=== PATIENT | female | born 1950 | race African-American/Black ===

== ENCOUNTER 2020-10-29 16:40 | Inpatient (IN) | payer MEDICARE, OTHER ==
[~2020-10-29] VITALS: Ht 152.4 cm; Wt 58.9 kg
[2020-10-29 19:12] LABS: COLLECTION METHOD CATHETER
[2020-10-29 19:26] LABS: MUCOUS Present /lpf; PH 5 (5-8); URINE APPEARANCE Hazy; URINE BACTERIA None Seen /hpf; URINE BILIRUBIN Positive (NEGATIVE); URINE BLOOD 1+ (NEGATIVE); URINE COLOR Amber; URINE GLUCOSE Negative (NEGATIVE); URINE KETONE 2+ (NEGATIVE); URINE LEUKOCYTE ESTERASE Negative (NEGATIVE); URINE NITRATE Negative (NEGATIVE); URINE PROTEIN(semi-quant) 2+ (NEGATIVE); URINE UROBILINOGEN >=4.0 mg/dL (NEGATIVE)
[2020-10-29] MEDS ORDERED: LEXAPRO 10MG10 MG PO (21:00)
[2020-10-29] MEDS ORDERED: PROTONIX 40MG T40 MG PO (21:01)
[2020-10-29] MEDS ORDERED: CARTIA XT300 MG PO (21:01)
[2020-10-29] MEDS ORDERED: VITAMIND3 5000 PO (21:02)
[2020-10-29 21:11] LABS: BASO # 0.1 (0.0-0.2); BASO % 0.7 % (0.0-2.0); EOS % 0.1 % (0-4.0); GRAN # 5.5 (1.4-6.5); GRAN % 74.6 % (42.2-75.2); HEMATOCRIT 42.2 % (37.0-47.0); HEMOGLOBIN 13.9 g/dl (12.5-16.0); LYMPH % 13.7 % (20.0-51.0); MEAN CELL VOLUME 83 fl (80.0-100.0); MEAN CORPUSCULAR HEMOGLOBIN 28 pg (27.0-31.0); MEAN CORPUSCULAR HGB CONC 33 g/dl (33.0-37.0); MEAN PLATELET VOLUME 12.3 fl (7.4-10.4); MONO # 0.7 (0.1-0.6); MONO % 9.8 % (1.7-9.3); RED BLOOD COUNT 5.06 M/mm3 (4.10-5.30); REDCELL DISTRIBUTION WIDTH-CV 19.7 % (11.5-14.5)
[2020-10-29 21:15] LABS: ALBUMIN 3.4 gm/dL (3.5-5.0); BILIRUBIN,TOTAL 0.7 mg/dL (0.0-1.0); CALCIUM 9.3 mg/dL (8.4-10.2); CREATININE, serum 0.45 (0.52-1.25); MAGNESIUM 1.9 mg/dL (1.6-2.3); POTASSIUM 3.7 mmol/L (3.4-5.0); TOTAL PROTEIN 6.4 gm/dL (6.4-8.2)
[2020-10-29 21:26] LABS: TROPONIN-I 0.021 ng/mL (0.000-0.035)
[2020-10-29 21:37] LABS: PLATELET COUNT 231 K/mm3 (130-400)
--- NOTE | 2020-10-29 22:51 | NUR ---
Received report from TARAS Granado.
[2020-10-30] VITALS (541 sets, daily range): BP systolic 125–146; BP diastolic 62–100; PULSE 82–112; TEMP 97.5–98.4; O2SAT 84–100
--- NOTE | 2020-10-30 00:07 | NUR ---
Patient arrives to ICU room 5 via ED stretcher. Patient is transferred to ICU bed with two-person total assist. Initial BP is 143/100 and HR is 108; other vitals within normal limits. Patient is A&Ox4, and reports chronic numbness/tingling in bilateral upper and lower extremities. Describes pain as "burning," rated 10/10. Bed in lowest position; call light within reach. All alarms on. No further needs noted at this time.
[2020-10-30] MEDS ORDERED: NEURONTIN300 MG/CAP PO (00:11)
[2020-10-30] MEDS ORDERED: ULTRAM 50MG TAB50 MG PO (00:12)
--- NOTE | 2020-10-30 07:20 | NUR ---
RECEIVED REPORT FROM TARAS KYLE. PT RESTING EASILY AT THIS TIME. VSS. CALL LIGHT WITHIN REACH. PUREWICK IN PLACE.
--- NOTE | 2020-10-30 09:55 | NUR ---
Initial visit; Patient thanked Creative Assistant for prayer and God's blessings. Creative Assistant will continue to look in on Cherise while she is a patient.
--- NOTE | 2020-10-30 10:00 | NUR ---
SPOKE TO ANAID ABOUT PT HAVING NO IV ACCESS, PT'S DIET ORDER, AND RECORDS FROM [facility]. NEW ORDERS RECEIVED. PHYSICIAN REVIEWED NADIYA'S CHART.
--- NOTE | 2020-10-30 10:47 | NUR ---
Utility Tender Carding contacted the patient's daughter, Denise to complete intake. The patient lives with Denise in [place]. The patient has a walker, a wheelchair, and bedside commode. [facility] began with the patient last week. Denise reports they filled out an online Medicaid application about 2.5 weeks ago. The patient's PCP is Dr. Overton and patient receives medications from the [facility] in [place]. The patient does not have advanced directives. The plan is to go SNF at discharge. She was agreeable to sending several referrals. Referrals faxed to [facility], [facility], [facility], [facility] in [place], and [facility] in [place]. SW met with the patient and she was agreeable to sending the above referrals as well. YESICA collaborated the above information with the team.
--- NOTE | 2020-10-30 12:00 | NUR ---
DR HERRERA AT BEDSIDE FOR ASSESSMENT. NEW ORDERS RECEIVED.
--- NOTE | 2020-10-30 13:28 | NUR ---
Turntable Operator collaborated with La Nena Hickman, financial counselor for the patient to sign releases for the Medicaid application process.
[2020-10-30 16:15] LABS: HIV 1/2 Antibodies Non-Reactive; HIV-1p24 Antigen Non-Reactive
--- NOTE | 2020-10-30 16:30 | NUR ---
NOTIFIED DR HERRERA OF [facility] IS NOT ABLE TO BE ORDERED THROUGH OUR LAB.
--- NOTE | 2020-10-30 16:56 | NUR ---
REPORT GIVEN TO TARAS SESAY ON MEDICAL. PT AWARE OF TRANSFER TO 359. ALL PERSONAL BELONGINGS SENT WITH PT. PT TRANSPORTED VIA BED.
--- NOTE | 2020-10-30 17:24 | NUR ---
Patient to room via bed from ICU. Transferred from ICU bed to room bed with assist of three, patient unable to help. Having some pain in her extremities at this time, numbness and tingling in extremities. Alert and oriented x4. Purewick in place with dark yellow urine in cannister. Patient noted to have small abrasion area under left side of abd fold. Oriented to room. Water provided.
[2020-10-30 17:49] LABS: FOLATE (FOLIC ACID) 3.1 ng/mL (7.0-31.4)
--- NOTE | 2020-10-30 20:45 | NUR ---
Initial shift assessment done- very pleasant , alert/oriented, very weak,,states she cannot hold anything in her hands- hand diplomatic officer very weak-- also can slightly move legs but no strength- has purewick--draining magdi urine-- denies pain, denies SOB, has been resting well
[2020-10-30 22:14] LABS: LYME DISEASE ANTIBODIES Negative (Negative)
[2020-10-31] VITALS (9 sets, daily range): BP systolic 107–138; BP diastolic 46–69; PULSE 90–105; TEMP 98–98.7
--- NOTE | 2020-10-31 05:55 | NUR ---
Did sleep some last night-no requests, denies pain, VSS
--- NOTE | 2020-10-31 07:00 | NUR ---
Report received from TARAS Elliott. PT in bed resting, denies needs,will continue justyn onitor.
[2020-10-31 07:32] LABS: HEMATOCRIT 37.4 % (37.0-47.0); MEAN CELL VOLUME 85 fl (80.0-100.0); MEAN CORPUSCULAR HEMOGLOBIN 27 pg (27.0-31.0); MEAN CORPUSCULAR HGB CONC 32 g/dl (33.0-37.0); MEAN PLATELET VOLUME 12.4 fl (7.4-10.4); PLATELET COUNT 233 K/mm3 (130-400); RED BLOOD COUNT 4.39 M/mm3 (4.10-5.30); REDCELL DISTRIBUTION WIDTH-CV 19.9 % (11.5-14.5)
[2020-10-31 07:34] LABS: HEMOGLOBIN 11.9 g/dl (12.5-16.0)
[2020-10-31 07:45] LABS: BILIRUBIN,TOTAL 0.6 mg/dL (0.0-1.0); CALCIUM 8.9 mg/dL (8.4-10.2); CREATININE, serum 0.46 (0.52-1.25); POTASSIUM 3.4 mmol/L (3.4-5.0); TOTAL PROTEIN 5.7 gm/dL (6.4-8.2)
[2020-10-31 07:53] LABS: TROPONIN-I 0.021 ng/mL (0.000-0.035)
--- NOTE | 2020-10-31 09:42 | NUR ---
Follow-up visit; Patient states she is not making progress toward feeling better but thanked Digital Sales Executive for visiting her again and offering encouragement and prayer.
--- NOTE | 2020-10-31 10:00 | NUR ---
Assessment charted. PT down for MRI nad LP. Denies pain, has numbness and tingling in hands and legs but able to move all extremities but has profound weakness. PICC to KRISTIE, flushes well and good blood return. Purewick in place to drain urine. Denies needs will continue justyn onitor.
--- NOTE | 2020-10-31 12:54 | NUR ---
Nasrin from [facility] has declined the patient for post acute rehab.
--- NOTE | 2020-10-31 14:18 | NUR ---
Crow, at [facility], reports that she is a tentative yes for them. He requests updates.
[2020-10-31 15:21] LABS: CSF APPEARANCE CLEAR
[2020-10-31 15:22] LABS: CSF COLOR OTHER; CSF MONONUCLEAR 50 % (70-100); CSF POLYMORPHONUCLEAR 50 % (0-6); CSF RBC 1000 /mm3 (0-0); GLUCOSE,CSF 56 mg/dL (40-70); TOTAL PROTEIN,CSF 219 mg/dL (15-45)
--- NOTE | 2020-10-31 18:50 | NUR ---
Started first infusion of IVIG at this time. Gave printouts found on CIDP and IVIG for pt education per request. Pt doing well, sleepy from premedicated benadryl but othrerwise denies any issues at thsi time. Pt had good afternoon, able to have some relief from getting probable diagnosis from Dr. Nixon. Will give bedside shift report to nightshift nurse whow ill resume care.
[2020-11-01 03:03] VITALS: BP 133/63; PULSE 94; TEMP 98
[2020-11-01 07:53] LABS: HEMOGLOBIN 11.6 g/dl (12.5-16.0); MEAN CELL VOLUME 84 fl (80.0-100.0); MEAN CORPUSCULAR HEMOGLOBIN 27 pg (27.0-31.0); MEAN CORPUSCULAR HGB CONC 33 g/dl (33.0-37.0); MEAN PLATELET VOLUME 11.8 fl (7.4-10.4); PLATELET COUNT 191 K/mm3 (130-400); RED BLOOD COUNT 4.23 M/mm3 (4.10-5.30); REDCELL DISTRIBUTION WIDTH-CV 19.7 % (11.5-14.5)
[2020-11-01 07:55] LABS: HEMATOCRIT 35.5 % (37.0-47.0)
[2020-11-01 08:04] LABS: ALBUMIN 3.1 gm/dL (3.5-5.0); BILIRUBIN,TOTAL 0.5 mg/dL (0.0-1.0); CALCIUM 9.1 mg/dL (8.4-10.2); CREATININE, serum 0.42 (0.52-1.25); POTASSIUM 3.9 mmol/L (3.4-5.0); TOTAL PROTEIN 6.5 gm/dL (6.4-8.2)
[2020-11-01 08:57] VITALS: BP 125/62; PULSE 88; TEMP 98.2
[2020-11-01 10:37] LABS: ANGIOTENSIN CONVERTING ENZYME 23 U/L (16 - 85)
[2020-11-01 12:20] VITALS: BP 121/58; PULSE 93; TEMP 97.6
--- NOTE | 2020-11-01 12:56 | NUR ---
SW attended clinical rounds. The patient will require four more days of IVIG here. SW notifiend and faxed updates to ARNOLDO, Kerwin Martell, and Sree Mims.
--- NOTE | 2020-11-01 14:03 | NUR ---
Late entry from 10/31. The patient was interested in completing a DPOA-HC. YESICA Harris, provided the form. The patient designated her daughter, Mary Nevarez, and her sister, Melly Connolly, as the alternate. YESICA and Kimberly ROBERT, witnessed the patient's signature. The patient was provided with the original and some copies. Ila, IPR Director, reports that she is interested in the patient.
[2020-11-01 15:27] VITALS: BP 114/44; PULSE 111; TEMP 98.7
--- NOTE | 2020-11-01 18:15 | NUR ---
Pt assessment completed and charted, this afternoon, pt sleepy this morning, refused morning medications this morning, took them this afternoon with lunch. pt took pills 1 at time w/ close supervision. Speech is clear, swallowing watched closely. Pt on room air, breathing is even and unlabored, LS cta. HRRR. Pt has KRISTIE PICC in place, flushes well w/ good blood return. Pt A&O. Pt repositioned, purewick changed. Pt denies any other needs. Pt hand grasp weak. Pt has had no complaints today.
[2020-11-01 18:42] LABS: CADMIUM BLOOD 0.8 ng/mL (<5.0); LEAD,SERUM** 4.5 mcg/dL (<5.0); MERCURY,SERUM <1 ng/mL (<10)
[2020-11-01 20:00] VITALS: BP 128/65; PULSE 95; TEMP 97.6
[2020-11-01 23:03] VITALS: BP 118/51; PULSE 89; TEMP 98.1
[2020-11-02] VITALS (11 sets, daily range): BP systolic 15–129; BP diastolic 56–73; PULSE 77–90; TEMP 97.4–98.9
--- NOTE | 2020-11-02 07:00 | NUR ---
Report received from TARAS Campbell. pT i jameled resting, sleeping soundly, wiana laura continue to monitor.
--- NOTE | 2020-11-02 08:30 | NUR ---
Assessment charted. Pt doing well, up in chair, per PT Jhonny pt was essentially lifted to the bed. Trying to eat breakfast on own but unable to hold spoon for herslef and has lost most of food and spoon on lap. OT here to assist pt with eating breakfast. WIll contineu ot monitor.
[2020-11-02 08:56] LABS: HEMATOCRIT 37.1 % (37.0-47.0); HEMOGLOBIN 12.1 g/dl (12.5-16.0); MEAN CELL VOLUME 85 fl (80.0-100.0); MEAN CORPUSCULAR HEMOGLOBIN 28 pg (27.0-31.0); MEAN CORPUSCULAR HGB CONC 33 g/dl (33.0-37.0); MEAN PLATELET VOLUME 11.6 fl (7.4-10.4); PLATELET COUNT 193 K/mm3 (130-400); RED BLOOD COUNT 4.37 M/mm3 (4.10-5.30); REDCELL DISTRIBUTION WIDTH-CV 19.3 % (11.5-14.5)
[2020-11-02 09:07] LABS: ALBUMIN 3.4 gm/dL (3.5-5.0); BILIRUBIN,TOTAL 0.4 mg/dL (0.0-1.0); CALCIUM 9.3 mg/dL (8.4-10.2); CREATININE, serum 0.42 (0.52-1.25); POTASSIUM 4.1 mmol/L (3.4-5.0); TOTAL PROTEIN 7.6 gm/dL (6.4-8.2)
--- NOTE | 2020-11-02 09:56 | NUR ---
Follow-up visit; Cherise thanked Senior Paralegal for checking in with her every day and for offering prayer. Today was a positive day with Cherise feeling better and having information about her illness and thinking she can be treated for it. Senior Paralegal will continue to look in on Cherise while she is hospitalized.
[2020-11-02 10:42] LABS: HSV 2 DNA PCR QUAL Not Detected (())
--- NOTE | 2020-11-02 13:33 | NUR ---
The patient is to have three more days of IVIG. SW faxed updates to ARNOLDO, Kerwin, and Vanessa Stewart.
--- NOTE | 2020-11-02 16:35 | NUR ---
Ila, IPR Director, reports that she would like to accept the patient.
--- NOTE | 2020-11-02 18:05 | NUR ---
Pt has had good afternoon. Resting in bed, turned for comfort, assisted to put new brief and purewick in place. Assisted with orderding supper and breakfast. Started IVIG, remaining at bedside for first 15 minutes. Denies needs, will give bedside shift report to nightshiftn jc who will resume care.
--- NOTE | 2020-11-02 19:15 | NUR ---
RECEIVED CHANGE OF SHIFT REPORT FROM DAY SHIFT NURSE.
--- NOTE | 2020-11-02 19:45 | NUR ---
INCREASED IVIG IV RATE FROM 90ML/HR TO 120ML/HR PER HOSP P/P. PATIENT DENIES CHEST PAIN/SOA/NAUSEA/VOMITING. VSS
--- NOTE | 2020-11-02 20:24 | NUR ---
INCREASED IV RATE OF IVIG PER HOSP P/P FROM 120ML/HR TO 150 ML/HR.
--- NOTE | 2020-11-02 20:39 | NUR ---
IVIG INFUSION COMPLETE. FLUSHED DUAL PICC PER HOSP P/P.
[2020-11-03] VITALS (11 sets, daily range): BP systolic 122–138; BP diastolic 64–82; PULSE 83–91; TEMP 96.9–98.7
[2020-11-03 06:31] LABS: CALCIUM 9.2 mg/dL (8.4-10.2); CREATININE, serum 0.44 (0.52-1.25); POTASSIUM 4.2 mmol/L (3.4-5.0)
--- NOTE | 2020-11-03 07:11 | NUR ---
CHANGE OF SHIFT REPORT GIVEN TO DAY SHIFT NURSERE.
[2020-11-03 07:14] LABS: HEMATOCRIT 35.5 % (37.0-47.0); HEMOGLOBIN 11.5 g/dl (12.5-16.0); MEAN CELL VOLUME 85 fl (80.0-100.0); MEAN CORPUSCULAR HEMOGLOBIN 27 pg (27.0-31.0); MEAN CORPUSCULAR HGB CONC 32 g/dl (33.0-37.0); MEAN PLATELET VOLUME 12.6 fl (7.4-10.4); PLATELET COUNT 181 K/mm3 (130-400); REDCELL DISTRIBUTION WIDTH-CV 19.4 % (11.5-14.5)
--- NOTE | 2020-11-03 09:00 | NUR ---
Patient sitting up in bed, trying to feed slef breakfast. Patient was able to eat some foods, but needs assistance with eating. A&Ox4. VSS. IV CDI, Denies pain and discomfort. Perwick in place. Nursing staff assisted with repositioning the patient. No further needs expressed from the patient. Call light within reach
--- NOTE | 2020-11-03 18:13 | NUR ---
Patient currently getting IGG infusion and tolerating well. A&Ox3. VSS. IV CDI. Denies pain and discomfort. Touch call light provided for the patient. Patient repositioned for comfort as needed. Patient trying to do as much self care as possible, nursing staff assisting as needed. Call light within reach. Bibck inplace. No further needs expressed from the patient.
--- NOTE | 2020-11-03 19:00 | NUR ---
Received report from Kaitlin. Seen patient awake in bed. With ongoing IGG titrated accordingly. Patient denies pain. With PICC line on right upper arm. On room air. She is alert and oriented. Bed alarm on.
[2020-11-04] VITALS (9 sets, daily range): BP systolic 126–146; BP diastolic 63–80; PULSE 79–88; TEMP 94.1–98.6
--- NOTE | 2020-11-04 04:57 | NUR ---
Changed patient's purewick and diaper. Repositioned patient. Placed pillow on her right side. She denies pain.
[2020-11-04 07:06] LABS: CALCIUM 9.1 mg/dL (8.4-10.2); CREATININE, serum 0.44 (0.52-1.25)
--- NOTE | 2020-11-04 08:51 | NUR ---
Patient sitting up in bed, nurse assisting with eating breakfast. A&Ox3. VSS. IV CDI. Denies pain and discomfort. Perwick in place. No further needs expressed from the patient. Call light within reach
--- NOTE | 2020-11-04 17:17 | NUR ---
Patient had an uneventful day. A&Ox3. VSS IV CDI. Denies pain and discomfort. Nursing staff assisting with daily cares and feeding patient. Perwick intact. No further needs expressed from the patient. Call light within reach
--- NOTE | 2020-11-04 21:00 | NUR ---
Patient resting in bed with HOB elevated 45 degree. Patient alert and oriented. Patient denies any pain or discomfort. Denies SOB or dyspnea. Purewick in place and draining clear yellow urine. Immune Golbulin IV infusing well via PICC line. Right upper arm PICC site has no s/s of complications. All scheduled meds given per DEC. Call light within reach. Patient denies any needs at this time.
[2020-11-05 04:00] VITALS: BP 131/67; PULSE 82; TEMP 98.2
--- NOTE | 2020-11-05 06:25 | NUR ---
Patient still reports some numbness/tingling to her hands and feet. Hand electrical technician is still weak. Completed last dose of IVIG last night. Patient tolerated well. VS stable. Call light within reach. Patient denies any needs at this time.
[2020-11-05 06:57] LABS: CREATININE, serum 0.51 (0.52-1.25); POTASSIUM 3.7 mmol/L (3.4-5.0)
--- NOTE | 2020-11-05 07:00 | NUR ---
Report received from TARAS Ann. pT in bed resting with eyes closed, will continue to monitor.
[2020-11-05 08:05] LABS: HEMOGLOBIN 12.1 g/dl (12.5-16.0); MEAN CELL VOLUME 83 fl (80.0-100.0); MEAN CORPUSCULAR HEMOGLOBIN 28 pg (27.0-31.0); MEAN CORPUSCULAR HGB CONC 33 g/dl (33.0-37.0); MEAN PLATELET VOLUME 12.3 fl (7.4-10.4); PLATELET COUNT 193 K/mm3 (130-400); RED BLOOD COUNT 4.39 M/mm3 (4.10-5.30); REDCELL DISTRIBUTION WIDTH-CV 19.4 % (11.5-14.5)
[2020-11-05 08:08] LABS: HEMATOCRIT 36.6 % (37.0-47.0)
[2020-11-05 08:54] VITALS: BP 134/75; PULSE 90; TEMP 98.3
[2020-11-05] MEDS ORDERED: TYLENOL 325MG325 MG PO (09:04)
[2020-11-05] MEDS ORDERED: FOLIC ACID 11 MG/TA1 PO (09:05)
[2020-11-05] MEDS ORDERED: MIRALAX PA17 GM/Dose PO (09:05)
--- NOTE | 2020-11-05 10:00 | NUR ---
Assessment charted. Pt able to feed self better and then holding drink with two hands. Feels well, still has pins and needles feelings in her extremities but feels it may be improving. Purewick draining clear yellow urine to DD in suction canister at side of bed. Turning for comfort, pt taking pills crushed in pudding and tolerating well. Will c ontinue to monitor.
--- NOTE | 2020-11-05 11:24 | NUR ---
Report given to TARAS Shah. Will get pt to I[facility] shortly via bed with all belongings.
[2020-11-05 11:39] VITALS: BP 131/64; PULSE 92; TEMP 98.5
[2020-11-05 11:52] VITALS: BP 131/64; PULSE 92; TEMP 98.5
--- NOTE | 2020-11-05 12:10 | NUR ---
Pt escorted via bed to room 338 with medical staff, transfer criteria met.
--- NOTE | 2020-11-05 12:55 | NUR ---
Patient to discharge to [facility] today. No additional needs at this time.
[2020-11-05 14:28] LABS: CSF OLIG BD INTERPRETATION 0 bands (<2); CSF OLIGOCLONAL BANDING 3 bands (()); SE OLIGOCLONAL BANDING 3 bands (())
[2020-11-06] MEDS ORDERED: LOVENOX 4040 MG/0.4 SQ (06:58)
[2020-11-06 08:30] LABS: CSF IGG/ALBUMIN 0.15 (<=0.21); CSF,IGG 17.4 mg/dL (<=8.1)
[2020-11-06 09:08] LABS: ALBUMUN SERUM 2880 mg/dL (()); CSF-IGG INDEX 0.54 (<=0.85); IGG,SERUM 792 mg/dL (()); IGG/ALBUMIN SERUM 0.28 (<=0.40)
[2020-11-06 13:11] LABS: A/G RATIO (PEP) 0.89 (()); BETA GLOBULINS (PEP) 0.9 g/dL (0.7-1.2)
== END 2020-11-05 12:10 | DRG 74 ==
LOC: COL.ER 16:40 → ICU 22:14 → MEDICAL 22:14
PROVIDERS: Emergency Medicine; Family Medicine; Nurse Practitioner; Physician Assistant; Psychiatry & Neurology Neurology; ADMIT Hospitalist
PROC: 02HV33Z Insertion of Infusion Device into Superior Vena Cava, Percutaneous Approach (ICD-10-PCS; 2020-10-30)
PROC: 009U3ZX Drainage of Spinal Canal, Percutaneous Approach, Diagnostic (ICD-10-PCS; principal; 2020-10-31)
DX: G61.81 Chronic inflammatory demyelinating polyneuritis (principal); E44.0 Moderate protein-calorie malnutrition; I11.0 Hypertensive heart disease with heart failure; F32.9 Major depressive disorder, single episode, unspecified; M50.21 Other cervical disc displacement, high cervical region; R62.7 Adult failure to thrive; M19.90 Unspecified osteoarthritis, unspecified site; Z20.822 Contact with and (suspected) exposure to COVID-19; R13.10 Dysphagia, unspecified; R73.9 Hyperglycemia, unspecified; R29.810 Facial weakness; R74.01 Elevation of levels of liver transaminase levels; Z68.25 Body mass index [BMI] 25.0-25.9, adult; R63.4 Abnormal weight loss; K59.00 Constipation, unspecified; R20.2 Paresthesia of skin; E78.5 Hyperlipidemia, unspecified; Z79.891 Long term (current) use of opiate analgesic; Z90.710 Acquired absence of both cervix and uterus; Z91.81 History of falling
CPT/HCPCS: 99222-AI; 99231-AI; 99232-AI; 99239; A9284; A9585; C1751; J1200; J1569; J1650; J2930